=== PATIENT | female | born 1985 | race Two or more races ===

== ENCOUNTER 2020-06-07 10:29 | Observation (INO) | payer OTHER ==
[~2020-06-07] VITALS: Ht 160 cm; Wt 78.0 kg
[2020-06-07 11:04] VITALS: BP 116/57
[2020-06-07] MEDS ORDERED: PREN1TAB80 PO (11:06)
[2020-06-07 14:13] LABS: COVID AG,FIA SOURCE NASOPHARYNGEAL
== END 2020-06-07 12:10 | disposition home or self-care (01) ==
LOC: 4S 10:29
PROVIDERS: ADMIT Obstetrics & Gynecology; ATTEND Obstetrics & Gynecology
DX: O09.513 Supervision of elderly primigravida, third trimester (principal); Z03.818 Encounter for observation for suspected exposure to other biological agents ruled out; Z3A.39 39 weeks gestation of pregnancy
CPT/HCPCS: 59025; 83036; 87426; 99219

== ENCOUNTER 2020-06-10 06:10 | Inpatient (IN) | payer OTHER ==
[~2020-06-10] VITALS: Ht 160 cm; Wt 77.6 kg
[~2020-06-10 06:10] MED LIST: PREN1TAB80 PO
[2020-06-10] MEDS ORDERED: METOCLOPRAMIDE HCL 5 MG/ML 2 ML VIAL IVP ONE ×2 (06:30→12:00)
[2020-06-10] MEDS ORDERED: RINGERS SOLUTION,LACTATED 1,000 ML IV ONE (06:30)
[2020-06-10] MEDS ORDERED: CITRIC ACID/SODIUM CITRATE 30 ML SOLUTION UDCUP PO ONE (06:30)
[2020-06-10 06:48] LABS: BASOPHILS % (AUTO) 0.7 % (0.0-2.0); EOSINOPHILS % (AUTO) 1.3 % (1.0-6.0); HEMATOCRIT 36.8 % (36-46); HEMOGLOBIN 13.2 g/dL (12.0-16.0); LYMPHOCYTES # (AUTO) 1.5 K/uL (1.0-4.8); MEAN CORPUSCULAR VOLUME 92 fL (80-100); MONOCYTES # (AUTO) 0.7 K/uL (0.1-1.0); MONOCYTES % (AUTO) 7.9 % (2.0-9.0); NEUTROPHILS # (AUTO) 6.5 K/uL (1.8-7.7); NEUTROPHILS % (AUTO) 73.1 % (40.0-70.0); PLATELET COUNT (AUTO) 143 K/uL (150-450); RED BLOOD CELL COUNT(AUTO) 4.02 MIL/uL (4.00-5.20); RED CELL DISTRIBUTION WIDTH 12.6 % (11.5-14.5)
[2020-06-10] MEDS ORDERED: INFLUENZA VIRUS VACCINE QVS 2020-21 (6MO+)/PF 60 MCG/0.5 ML SYRINGE IM ONE (07:45)
[2020-06-10] MEDS ORDERED: FentaNYL CITRATE-PF 100 MCG/2 ML VIAL IVP PRN (08:00)
[2020-06-10] MEDS ORDERED: DiphenhydrAMINE HCL 50 MG/ML VIAL IVP PRN (08:00)
[2020-06-10] MEDS ORDERED: OXYGEN THERAPY IH SCH ×2 (08:00)
[2020-06-10] MEDS ORDERED: ACETAMINOPHEN 1000 MG/ISO-OSM 100 ML IV ONE (08:00)
[2020-06-10] MEDS ORDERED: NALOXONE HCL 0.4 MG/ML VIAL IVP PRN (08:00)
[2020-06-10] MEDS ORDERED: ONDANSETRON HCL 4 MG/2 ML VIAL IVP PRN (08:00)
[2020-06-10] MEDS ORDERED: ACETAMINOPHEN/CODEINE 300-30 MG TABLET PO PRN (09:15)
[2020-06-10] MEDS: DEXTROSE 5%-0.45% SODIUM CHL 1,000 ML IV SCH ×3 (11:52→20:50)
[2020-06-10] MEDS ORDERED: KETOROLAC TROMETHAMINE 30 MG/ML VIAL IVP SCH ×2 (12:00→21:00)
[2020-06-10] MEDS ORDERED: EPHEDrine SULFATE 50 MG/ML VIAL IM ONE (12:00)
[2020-06-10] MEDS ORDERED: ONDANSETRON HCL 4 MG/2 ML VIAL IVP ONE (12:00)
[2020-06-10] MEDS ORDERED: OXYTOCIN 10 UNITS/ML VIAL IM ONE (12:00)
[2020-06-10] MEDS ORDERED: DEXAMETHASONE SOD PHOS 4 MG/ML VIAL IVP ONE (12:00)
[2020-06-10] MEDS: LANOLIN 7 GM OINTMENT TP PRN (18:43)
[2020-06-10] MEDS: MAGNESIUM HYDROXIDE SUSPENSION 30 ML UDCUP PO SCH (20:49)
[2020-06-11] MEDS ORDERED: DEXTROSE 5%-0.45% SODIUM CHL 1,000 ML IV ONE (03:10)
[2020-06-11] MEDS: IBUPROFEN 800 MG TABLET PO SCH ×4 (03:15→21:24)
[2020-06-11] MEDS: DEXTROSE 5%-0.45% SODIUM CHL 1,000 ML IV SCH (03:15)
[2020-06-11] MEDS: LANOLIN 7 GM OINTMENT TP PRN (05:01)
[2020-06-11 07:05] LABS: HEMATOCRIT 25.7 % (36-46); HEMOGLOBIN 9.2 g/dL (12.0-16.0); MEAN CORPUSCULAR HGB CONC 35.6 G/dL (31.0-37.0); MEAN CORPUSCULAR VOLUME 93 fL (80-100); PLATELET COUNT (AUTO)-OB 113 K/uL (150-450); RED BLOOD CELL COUNT(AUTO) 2.78 MIL/uL (4.00-5.20); RED CELL DISTRIBUTION WIDTH 12.7 % (11.5-14.5)
[2020-06-11 08:19] LABS: BAND NEUTROPHILS % (MANUAL) 10 % (0-5); LYMPHOCYTES % (MANUAL) 12 % (22-44); MONOCYTES % (MANUAL) 2 % (2-9); SEGMENTED NEUTROPHILS % 76 % (40-70)
[2020-06-11] MEDS: MAGNESIUM HYDROXIDE SUSPENSION 30 ML UDCUP PO SCH ×2 (09:08→21:24)
[2020-06-11] MEDS: OxyCODONE HCL/ACETAMINOPHEN 5-325 MG TABLET PO PRN ×3 (09:58→22:08)
[2020-06-11] MEDS ORDERED: SOD FERRIC GLUC COMPLX/SUCROSE 125 MG in SODIUM CHLORIDE 0.9% 100 ML IV ONE (12:00)
[2020-06-12] MEDS: IBUPROFEN 800 MG TABLET PO SCH ×4 (02:05→20:09)
[2020-06-12] MEDS: ACETAMINOPHEN/CODEINE 300-30 MG TABLET PO PRN ×2 (03:22→10:12)
[2020-06-12] MEDS: MAGNESIUM HYDROXIDE SUSPENSION 30 ML UDCUP PO SCH ×2 (08:41→20:09)
[2020-06-12] MEDS ORDERED: OxyCODONE HCL/ACETAMINOPHEN 5-325 MG TABLET PO PRN (15:00)
[2020-06-13] MEDS: ACETAMINOPHEN/CODEINE 300-30 MG TABLET PO PRN (00:54)
[2020-06-13] MEDS: IBUPROFEN 800 MG TABLET PO SCH ×2 (01:56→08:42)
[2020-06-13] MEDS ORDERED: IBUP-2071 PO (09:11)
[2020-06-13] MEDS ORDERED: FERR-89 PO (09:11)
== END 2020-06-13 11:15 | disposition home or self-care (01) | DRG 788 ==
LOC: 4S 06:10 → OBSVTOIN 06:10 → 4S 06-11 19:25
PROVIDERS: ADMIT Obstetrics & Gynecology; ATTEND Obstetrics & Gynecology
PROC: 10D00Z1 Extraction of Products of Conception, Low, Open Approach (ICD-10-PCS; principal; 2020-06-10)
PROC: 3E02340 Introduction of Influenza Vaccine into Muscle, Percutaneous Approach (ICD-10-PCS; 2020-06-10)
DX: O75.89 Other specified complications of labor and delivery (principal); Z3A.39 39 weeks gestation of pregnancy; Z37.0 Single live birth; Z23 Encounter for immunization
CPT/HCPCS: 85007; 86850; 86900; 86901; 87081; 90686; J0131; J0690; J1100; J1885; J2405; J2590; J2765; J2916; J3490; J7050; J7120